=== PATIENT | female | born 1965 | race Two or more races ===

== ENCOUNTER 2017-12-18 14:53 | Day surgery (SDC) | payer OTHER ==
[~2017-12-18 14:53] MED LIST: DEXAMETHASONE 4 MG/ML 1 ML INJ; LIDOCAINE 2% (SDV) 5 ML INJ; METOCLOPRAMIDE 10 MG INJ; ONDANSETRON 4 MG INJ; PROPOFOL 200 MG INJ
[2017-12-18] MEDS ORDERED: FENTAnyl 50 MCG/ML VIAL (15:15)
[2017-12-18] MEDS ORDERED: MIDAZOLAM 1 MG/ML 2 ML INJ (15:16)
[2017-12-18] MEDS ORDERED: ROPIVACAINE 0.5 % 30 ML VIAL (16:23)
[2017-12-18] MEDS ORDERED: ONDANSETRON (ODT) 4 MG TAB ODT (16:30)
[2017-12-18] MEDS ORDERED: HYDROCODONE/APAP (10/325) TAB PO (16:30)
[2017-12-18] MEDS ORDERED: SUGAMMADEX SODIUM 200 MG/2 ML VIAL IV (16:44)
[2017-12-18] MEDS ORDERED: CLINDAMYCIN 900 MG/D5W (PMX) 50 ML IVPB (17:07)
[2017-12-18] MEDS: BUPIVACAINE 0.5% (SDV) 30 ML INJ (17:27)
[2017-12-18] MEDS ORDERED: DIPHENHYDRAMINE 50 MG INJ IV (17:30)
[2017-12-18] MEDS ORDERED: PROCHLORPERAZINE 10 MG INJ IV (17:30)
[2017-12-18] MEDS ORDERED: hydrALAzine 20 MG INJ IV (17:30)
[2017-12-18] MEDS ORDERED: LABETALOL HCL 20MG INJ IV (17:30)
[2017-12-18] MEDS ORDERED: HYDROmorphONE 1 MG/5 ML IV SYRINGE IV ×2 (17:30)
[2017-12-18] MEDS ORDERED: ONDANSETRON 4 MG INJ IV (17:30)
[2017-12-18] MEDS ORDERED: MEPERIDINE 25 MG INJ IV (17:30)
[2017-12-18] MEDS ORDERED: KETOROLAC 30 MG INJ IV (17:30)
[2017-12-18] MEDS ORDERED: FENTAnyl 50 MCG/ML VIAL IV ×2 (17:30)
== END 2017-12-18 19:15 | disposition home or self-care (01) ==
LOC: SDS 14:53
DX: M67.472 Ganglion, left ankle and foot (principal)
CPT/HCPCS: 28090; 84703; 87075